=== PATIENT | male | born 1945 | race Caucasian/White ===

== ENCOUNTER 2017-08-11 12:25 | Emergency (ER) | payer MEDICARE ==
[~2017-08-11] VITALS: Ht 177.8 cm; Wt 129.0 kg
[~2017-08-11 12:25] MED LIST: ALBUTEROL S2.5 MG/.5 IN; ALBUTEROL SUL0.083 % IN; ASA LO-DOSE81 MG OR; ATORVASTATIN CA80 MG PO; BUDESONID2 IN; CARAC 0.5% EX; CEPHALEXIN500 MG PO; COUMADIN5 MG OR; DOFETILIDE PO; FINASTERIDE5 MG PO; FISH OIL1200 MG PO; FLUOROURACIL C-LINE; GABAPENTIN300 MG PO; KEFLEX500 M1 PO; LASIX40 MG PO; LISINOPRIL10 MG PO; LISINOPRIL20 MG PO; LOPRESSOR OR; MEDDOSEPAK PO; METHOCARBAM500 MG PO; METOPROL TAR25 MG PO; METOPROLOL100 M1 PO; NITROSTAT0.4 MG SL; OMEPRAZOLE20 MG OR; PAIN RELIEF325 MG PO; PRADAXA150 M1 PO; PRADAXA150 MG PO; RANITIDINE HCL300 MG PO; ROBITUSSIN AC10 ML PO; SIMVASTATIN40 MG OR; ULTRAM50 MG PO; UROXATRAL10 MG PO; VITAMIN D31000 UNI1 PO
[2017-08-11] MEDS ORDERED: EC-NAPROSYN500 MG PO ×2 (14:10→15:01)
[2017-08-11 15:28] VITALS: BP 146/77
== END 2017-08-11 15:44 | disposition home or self-care (01) ==
LOC: ED 12:25
DX: S80.01XA Contusion of right knee, initial encounter (principal); S80.211A Abrasion, right knee, initial encounter; W01.0XXA Fall on same level from slipping, tripping and stumbling without subsequent striking against object, initial encounter; Y93.01 Activity, walking, marching and hiking; Y92.009 Unspecified place in unspecified non-institutional (private) residence as the place of occurrence of the external cause